=== PATIENT | female | born 1965 | race Caucasian/White ===

== ENCOUNTER 2020-03-30 11:15 | Emergency (ER) | payer OTHER ==
[~2020-03-30 11:15] MED LIST: ALL DAY ALLERGY10 M2 PO; ALORA1 EAC1 TD; BENADRYL 25MG C25 MG PO; BENZONATATE200 MG PO; BUSPIRONE HCL10 MG PO; CEFUROXIME500 MG PO; CYCLOBENZAPRINE10 MG PO; DOXYCYCLINE HY100 MG PO; DULERA 200 MCG8.8 GM INH; ELAVIL 50 MG TA50 MG PO; HYDROXYZINE HCL25 MG PO; IMITREX100 MG PO; INCRUSE ELLI62.5 MCG INH; IPRAT-ALBUT 0.5-3 ML INH; KEFLEX500 MG PO; LIPITOR TAB 2020 MG PO; MEGACE 400400 MG/10 PO; MINIPRESS2 MG PO; MIRTAZAPINE45 MG PO; MULTIVITAMINS1 EAC1 PO; OMEPRAZOLE40 MG PO; PAXIL30 MG PO; PAXIL40 MG PO; PEPCID40 MG PO; PERCOCET 5-3251 EACH PO; PERCOCET 5/325 T1 EA PO; POTASSIUM CHLO20 ME1 PO; PROMETRIUM 200200 MG PO; PROVENTIL HFA6.7 GM INH; REMERON30 MG PO; ULTRAM50 MG PO; ZANTAC150 MG PO; ZOFRAN4 MG PO
[2020-03-30 13:23] LABS: HEMOGLOBIN 13.6 gm/dl (12.3-15.3); RED BLOOD COUNT 4.59 M/UL (4.00-5.10); WHITE BLOOD COUNT 3.4 K/UL (4.5-11.0)
[2020-03-30 13:56] LABS: BUN/CREATININE RATIO 10 (0-10)
[2020-03-30] MEDS ORDERED: DOXYCYCLINE HY100 MG PO (15:44)
== END 2020-03-30 16:05 | disposition home or self-care (01) ==
LOC: ER1 11:15
PROVIDERS: Physician Assistant
DX: U07.1 COVID-19 (principal); J12.82 Pneumonia due to coronavirus disease 2019; J44.9 Chronic obstructive pulmonary disease, unspecified; Z87.891 Personal history of nicotine dependence
CPT/HCPCS: 36600; 71045; 80053; 82550; 82553; 82803; 83605; 83874; 84484; 85025; 85379; 87040; 96374; 99285; J1100

== ENCOUNTER 2020-03-31 22:26 | Emergency (ER) | payer OTHER ==
[2020-03-31 23:22] LABS: HEMOGLOBIN 11.8 gm/dl (12.3-15.3); WHITE BLOOD COUNT 3.9 K/UL (4.5-11.0)
== END 2020-04-01 04:00 | disposition home or self-care (01) ==
LOC: ER1 22:26
PROVIDERS: Emergency Medicine
DX: U07.1 COVID-19 (principal); J12.82 Pneumonia due to coronavirus disease 2019; N28.89 Other specified disorders of kidney and ureter; J44.9 Chronic obstructive pulmonary disease, unspecified; Z99.81 Dependence on supplemental oxygen; Z87.891 Personal history of nicotine dependence; Z91.030 Bee allergy status; Z79.899 Other long term (current) drug therapy
CPT/HCPCS: 36415; 36600; 71045; 80053; 82550; 82553; 82803; 83874; 83880; 84484; 85025; 93005; 99285; J2310; M0239

== ENCOUNTER 2020-07-14 20:21 | Emergency (ER) | payer OTHER | END 2020-07-15 01:45 | disposition home or self-care (01) | LOC: ER1 20:21 | DX: S92.352A Displaced fracture of fifth metatarsal bone, left foot, initial encounter for closed fracture (principal); J44.9 Chronic obstructive pulmonary disease, unspecified; M19.90 Unspecified osteoarthritis, unspecified site; Z86.16 Personal history of COVID-19; Z90.49 Acquired absence of other specified parts of digestive tract; Z79.899 Other long term (current) drug therapy; E78.5 Hyperlipidemia, unspecified; X58.XXXA Exposure to other specified factors, initial encounter | CPT/HCPCS: 73610; 73630; 73700; 96372; 99283; J1885 ==

== ENCOUNTER 2020-07-23 12:30 | Emergency (ER) | payer OTHER ==
[2020-07-23 15:59] LABS: HEMOGLOBIN 13.3 gm/dl (12.3-15.3); RED BLOOD COUNT 4.28 M/UL (4.00-5.10)
== END 2020-07-23 16:57 | disposition home or self-care (01) ==
LOC: ER1 12:30
PROVIDERS: Emergency Medicine
DX: S92.512A Displaced fracture of proximal phalanx of left lesser toe(s), initial encounter for closed fracture (principal); E11.9 Type 2 diabetes mellitus without complications; F17.200 Nicotine dependence, unspecified, uncomplicated; W22.8XXA Striking against or struck by other objects, initial encounter
CPT/HCPCS: 73610; 73630; 80048; 85025; 93971; 99284

== ENCOUNTER 2020-09-19 13:41 | Emergency (ER) | payer OTHER ==
[2020-09-19 16:22] LABS: HEMOGLOBIN 12.6 gm/dl (12.3-15.3); RED BLOOD COUNT 4.17 M/UL (4.00-5.10); WHITE BLOOD COUNT 5.8 K/UL (4.5-11.0)
[2020-09-19 16:57] LABS: BUN/CREATININE RATIO 10 (0-10)
[2020-09-19] MEDS ORDERED: CEPHALEXIN500 MG PO (20:15)
[2020-09-19] MEDS ORDERED: PYRIDIUM200 MG PO (20:15)
[2020-09-19] MEDS ORDERED: ZOFRAN ODT 4 MG4 MG PO (20:17)
[2020-11-20] MEDS ORDERED: OMNICEF 300 MG300 MG PO (05:31)
[2020-11-20] MEDS ORDERED: K-DUR TAB 10 M10 MEQ PO (05:31)
== END 2020-09-19 20:44 | disposition home or self-care (01) ==
LOC: ER1 13:41
PROVIDERS: Nurse Practitioner; Physician Assistant
DX: R07.9 Chest pain, unspecified (principal); N39.0 Urinary tract infection, site not specified; J44.9 Chronic obstructive pulmonary disease, unspecified; K21.9 Gastro-esophageal reflux disease without esophagitis; I10 Essential (primary) hypertension; Z91.012 Allergy to eggs; Z79.899 Other long term (current) drug therapy
CPT/HCPCS: 70450; 71045; 80053; 80307; 81001; 82550; 82553; 83735; 83874; 84484; 85025; 93005; 96374; 96375; 99285; J0696; J2405

== ENCOUNTER → 2020-10-08 | Outpatient (CLI) | payer OTHER ==
[~2020-10-08] MED LIST changes: +CEFDINIR300 MG PO; +CEPHALEXIN500 MG PO; +K-DUR TAB 10 M10 MEQ PO; +OMNICEF 300 MG300 MG PO; +PYRIDIUM200 MG PO; +ZOFRAN ODT 4 MG4 MG PO
== END ==
LOC: KOH-I 10-01 16:00
DX: R47.01 Aphasia (principal)
CPT/HCPCS: 70551

== ENCOUNTER 2020-10-13 11:07 | Emergency (ER) | payer OTHER ==
[~2020-10-13 11:07] MED LIST changes: -CEFDINIR300 MG PO; -K-DUR TAB 10 M10 MEQ PO; -OMNICEF 300 MG300 MG PO
[2020-10-13 12:26] LABS: HEMOGLOBIN 13.4 gm/dl (12.3-15.3); RED BLOOD COUNT 4.53 M/UL (4.00-5.10); WHITE BLOOD COUNT 5.5 K/UL (4.5-11.0)
[2020-10-13 12:48] LABS: BUN/CREATININE RATIO 10 (0-10)
[2020-10-13] MEDS ORDERED: CEFDINIR300 MG PO (15:28)
[2020-11-20] MEDS ORDERED: K-DUR TAB 10 M10 MEQ PO (05:31)
[2020-11-20] MEDS ORDERED: OMNICEF 300 MG300 MG PO (05:31)
== END 2020-10-13 15:41 | disposition home or self-care (01) ==
LOC: ER1 11:07
PROVIDERS: Physician Assistant Medical
DX: N39.0 Urinary tract infection, site not specified (principal); J44.9 Chronic obstructive pulmonary disease, unspecified; N18.9 Chronic kidney disease, unspecified
CPT/HCPCS: 70450; 71046; 80053; 81001; 82550; 82553; 83874; 84484; 84703; 85025; 87077; 87086; 87186; 93005; 99283

== ENCOUNTER → 2020-12-16 | Outpatient (CLI) | payer OTHER ==
[~2020-12-16] MED LIST changes: +CEFDINIR300 MG PO; +K-DUR TAB 10 M10 MEQ PO; +OMNICEF 300 MG300 MG PO
== END ==
LOC: HEART 5 08:00
DX: R07.9 Chest pain, unspecified (principal); R06.02 Shortness of breath
CPT/HCPCS: 93306

== ENCOUNTER → 2021-03-11 | Outpatient (CLI) | payer OTHER | LOC: EMI 12:55 → KOH-I 13:00 → EMI 13:45 | DX: F44.4 Conversion disorder with motor symptom or deficit (principal); R42 Dizziness and giddiness; F40.01 Agoraphobia with panic disorder; F45.8 Other somatoform disorders; R90.82 White matter disease, unspecified | CPT/HCPCS: 70551 ==

== ENCOUNTER 2021-08-14 12:28 | Observation (INO) | payer OTHER ==
[~2021-08-14] VITALS: Ht 167.6 cm; Wt 56.7 kg
[~2021-08-14 12:28] MED LIST changes: +AMITRIPTYLINE150 MG PO; -ELAVIL 50 MG TA50 MG PO; -LIPITOR TAB 2020 MG PO; +LIPITOR40 MG PO; +PAXIL20 MG PO; -PAXIL30 MG PO; -PERCOCET 5-3251 EACH PO; +PERCOCET 7.5-31 EACH PO; +PROAIR HFA8.5 GM INH; -PROVENTIL HFA6.7 GM INH
[2021-08-14 13:43] LABS: HEMOGLOBIN 15.5 gm/dl (12.3-15.3); RED BLOOD COUNT 4.93 M/UL (4.00-5.10); WHITE BLOOD COUNT 8.9 K/UL (4.5-11.0)
--- NOTE | 2021-08-14 16:55 | NUR ---
NOTIFED DR. HARTMAN ABOUT PATIENT'S ARRIVAL TO FLOOR AND NEED FOR HOME MEDICATION RECONCILLIATION.
[2021-08-14] MEDS ORDERED: QUETIAPINE FUM200 MG PO (17:15)
[2021-08-14] MEDS ORDERED: TOPIRAMATE25 MG PO (17:16)
[2021-08-14] MEDS ORDERED: GABAPENTIN300 MG PO (17:16)
[2021-08-14] MEDS ORDERED: NITROGLYCERIN0.4 MG SL (17:18)
[2021-08-14] MEDS ORDERED: ONDANSETRON HCL4 MG PO (17:18)
[2021-08-14] MEDS ORDERED: ALAWAY10 ML OU (17:19)
[2021-08-14] MEDS ORDERED: MULTIVITAMIN1 EACH PO (17:20)
[2021-08-14] MEDS ORDERED: ARTHRITIS PAIN150 GM TP (17:20)
[2021-08-14] MEDS ORDERED: KLONOPIN0.5 MG PO (17:22)
[2021-08-15 06:43] LABS: HEMOGLOBIN 13.6 gm/dl (12.3-15.3); RED BLOOD COUNT 4.51 M/UL (4.00-5.10)
[2021-08-15 06:51] LABS: WHITE BLOOD COUNT 5.3 K/UL (4.5-11.0)
[2021-08-15] MEDS ORDERED: CEFUROXIME250 MG PO (10:44)
== END 2021-08-15 11:31 | disposition home or self-care (01) ==
LOC: ER1 12:28 → CDU 14:46 → MED SURG 4 14:46
PROVIDERS: Emergency Medicine; Physician Assistant Medical; ADMIT Internal Medicine
DX: I95.9 Hypotension, unspecified (principal); N17.9 Acute kidney failure, unspecified; N18.30 Chronic kidney disease, stage 3 unspecified; R07.89 Other chest pain; R19.7 Diarrhea, unspecified; E87.6 Hypokalemia; N30.00 Acute cystitis without hematuria; E78.5 Hyperlipidemia, unspecified; K21.9 Gastro-esophageal reflux disease without esophagitis; J44.9 Chronic obstructive pulmonary disease, unspecified; Q61.5 Medullary cystic kidney; Z87.891 Personal history of nicotine dependence; Z79.899 Other long term (current) drug therapy
CPT/HCPCS: 71045; 80048; 80053; 81001; 82550; 82553; 83605; 83735; 84484; 85025; 85027; 87040; 87086; 93005; 96374; 99285; G0378; J0696

== ENCOUNTER 2021-11-03 21:46 | Emergency (ER) | payer OTHER ==
[~2021-11-03 21:46] MED LIST changes: +ALAWAY10 ML OU; +ARTHRITIS PAIN150 GM TP; +CEFUROXIME250 MG PO; +GABAPENTIN300 MG PO; +KLONOPIN0.5 MG PO; +MULTIVITAMIN1 EACH PO; +NITROGLYCERIN0.4 MG SL; +ONDANSETRON HCL4 MG PO; +QUETIAPINE FUM200 MG PO; +TOPIRAMATE25 MG PO
== END 2021-11-03 23:00 | disposition left against medical advice (07) ==
LOC: ER1 21:46
DX: S01.01XA Laceration without foreign body of scalp, initial encounter (principal); F10.129 Alcohol abuse with intoxication, unspecified; W19.XXXA Unspecified fall, initial encounter
CPT/HCPCS: 99282